=== PATIENT | male | born 1990 | race African-American/Black ===

== ENCOUNTER 2019-03-21 17:25 | Emergency (ER) | payer OTHER ==
[2019-03-21] MEDS ORDERED: Ibuprofen 200 MG TAB ONE ×2 (18:09→19:30)
--- NOTE | 2019-03-21 18:25 | CT ---
CT Brain WO Con History: Trauma. Comparison: None. Findings: No acute hemorrhage or infarct. No midline shift or mass effect. Ventricular size and extra -axial CSF spaces are normal. Calvarium is intact. Paranasal sinuses and mastoids are clear. Impression: No acute intracranial abnormality.
[2019-03-21] MEDS ORDERED: Lidocaine 1% PF 5 ML VIAL ONE (18:55)
[2019-03-21] MEDS ORDERED: Ondansetron ODT 4 MG TAB ONE (19:30)
[2019-03-21] MEDS ORDERED: Acetaminophen 500 MG TAB ONE (19:30)
== END 2019-03-21 19:52 | disposition home or self-care (01) ==
LOC: ERS 17:25
DX: S06.0X1A Concussion with loss of consciousness of 30 minutes or less, initial encounter (principal); S01.411A Laceration without foreign body of right cheek and temporomandibular area, initial encounter; F17.210 Nicotine dependence, cigarettes, uncomplicated; W22.8XXA Striking against or struck by other objects, initial encounter; Y93.62 Activity, american flag or touch football
CPT/HCPCS: 12013; 70450; J2001; Q0162